=== PATIENT | male | born 1950 | race Caucasian/White ===

== ENCOUNTER → 2023-05-12 06:20 | Outpatient (REF) | payer MEDICARE, OTHER, SELFPAY ==
[2023-05-12 10:00] LABS: % Basophils 0.6 % (0-2); % Eosinophils 1.2 % (0-6); % Immature Granulocytes 0.3 % (0-0.5); % Lymphocytes 67.4 % (20.5-51.1); % Monocytes 5.4 % (1.7-9.3); % Neutrophils 25.1 % (42.2-75.2); Absolute Basophils 0.1 10^3/uL (0-0.2); Absolute Eosinophils 0.3 10^3/uL (0-0.7); Absolute Immature Granulocytes 0.1 10^3/uL (0-0.05); Absolute Lymphocytes 15.5 10^3/uL (1.2-3.4); Absolute Monocytes 1.3 10^3/uL (0.1-0.6); Absolute Neutrophils 5.7 10^3/uL (1.4-6.5); Hematocrit 43.3 % (39.0-52.0); Hemoglobin 14.5 g/dL (13.0-18.0); Mean Corp Hgb Conc. 33.5 g/dL (33.0-37.0); Mean Corpuscular Hgb 28.6 pg (27.0-31.0); Mean Corpuscular Volume 85.4 fL (80.0-94.0); Mean Platelet Volume 8.6 fL (7.4-10.4); Nucleated Red Blood Cells % 0 % (-); Platelet Count 280 10^3/uL (130-400); Red Blood Cell Count 5.07 10^6/uL (4.70-6.10); Red Cell Dist. Width 12.6 % (11.5-14.5); White Blood Cell Count 22.9 10^3/uL (4.8-10.8)
[2023-05-12 10:23] LABS: LDH 168 U/L (120-246)
== END ==
LOC: HWLAB 06:20
PROVIDERS: ATTENDING PHYSICIAN Internal Medicine Hematology & Oncology; FAMILY PHYSICIAN Family Medicine
DX: C91.10 Chronic lymphocytic leukemia of B-cell type not having achieved remission (principal)
CPT/HCPCS: 36415; 83615; 85025

== ENCOUNTER → 2023-05-13 12:09 | Outpatient (REF) | payer MEDICARE, OTHER, SELFPAY | LOC: HWRAD 12:09 | PROVIDERS: ATTENDING PHYSICIAN Specialist; FAMILY PHYSICIAN Family Medicine | DX: R91.8 Other nonspecific abnormal finding of lung field (principal) | CPT/HCPCS: 71250 ==

== ENCOUNTER 2023-06-23 11:19 | Emergency (ER) | payer MEDICARE, OTHER, SELFPAY ==
[2023-06-23] VITALS (20 sets, daily range): BP systolic 115–150; BP diastolic 48–74; BMI 30.7
[2023-06-23] MEDS: DUONEB 3 ML INH ×3 (12:14→16:57)
[2023-06-23] MEDS: DECADRON 10 MG IV (12:28)
[2023-06-23 12:40] LABS: % Basophils 0.3 % (0-2); % Eosinophils 0.2 % (0-6); % Immature Granulocytes 0.3 % (0-0.5); % Lymphocytes 22.7 % (20.5-51.1); % Monocytes 8.7 % (1.7-9.3); % Neutrophils 67.8 % (42.2-75.2); Absolute Lymphocytes 2.6 10^3/uL (1.2-3.4); Absolute Neutrophils 7.8 10^3/uL (1.4-6.5); Hematocrit 41.6 % (39.0-52.0); Mean Corp Hgb Conc. 33.7 g/dL (33.0-37.0); Mean Corpuscular Hgb 28.9 pg (27.0-31.0); Mean Corpuscular Volume 85.8 fL (80.0-94.0); Mean Platelet Volume 8.3 fL (7.4-10.4); Nucleated Red Blood Cells % 0 % (-); Platelet Count 169 10^3/uL (130-400); Red Blood Cell Count 4.85 10^6/uL (4.70-6.10); Red Cell Dist. Width 12.6 % (11.5-14.5); White Blood Cell Count 11.5 10^3/uL (4.8-10.8)
[2023-06-23 12:53] LABS: ALT (SGPT) 22 U/L (0-50); AST (SGOT) 26 U/L (17-59); Albumin 4.1 g/dl (3.5-5.0); Alkaline Phosphatase 79 U/L (38-126); Blood Urea Nitrogen 18 mg/dl (9-20); Calcium 8.9 mg/dl (8.4-10.2); Carbon Dioxide 25 mmol/L (22-30); Chloride 99 mmol/L (98-107); Estimated Creatinine Clearance 69 ml/min; Glucose 120 mg/dl (70-99); Potassium 3.9 mmol/L (3.5-5.1); Sodium 133 mmol/L (135-145); Total Bilirubin 0.6 mg/dl (0.2-1.3); eGFR > 60.00
--- NOTE | 2023-06-23 16:11 | ED.GENMED ---
History of Present Illness
General
Chief Complaint: Breathing Problem
Source: patient and spouse
Time Seen by Provider: 06/23/23 11:43
Travel History
Have you had any contact with someone who has COVID-19?: No
Do you have any symptoms of coronavirus? Fever > 100 degrees, chills, cough, shortness of breath, sore throat, loss of taste or smell, muscle aches, or headache?: Yes
Symptoms:: current
History of Present Illness
History of Present Illness:
72-year-old male who presents with increased shortness of breath. Tested positive for COVID 5 days ago. Patient was a longtime smoker but has quit. Patient also has a history of obstructive sleep apnea. Patient was told by urgent care that he
had an obstructed left lung. Patient denies chest pain. Has had low-grade fevers
Past History
Past History
ED Past Medical History: HTN and Other (CLL)
ED Past Surgical History: Appendectomy and Orthopedic
Social History
Tobacco: Former smoker
Alcohol: Former
Personal:
Living: with family
Family History
Family History: Diabetes and CAD
Phy Exam
Physical Exam
Physical Exam:
CONSTITUTIONAL Patient alert and oriented to person, place and time. Well-appearing. Vital signs reviewed.
HEAD atraumatic, normocephalic.
EYES eyelids normal to inspection, Pupils equally round and reactive to light, Extraocular muscles intact, Conjunctiva normal, Sclera normal.
NECK normal range of motion, Trachea midline, no jugular venous distention.
RESPIRATORY CHEST No respiratory distress noted, Chest expansion equal, wheezing bilaterally, scattered rhonchi.
CARDIOVASCULAR regular rate and rhythm, Heart sounds normal.
BACK normal inspection, no obvious deformities
UPPER EXTREMITY range of motion normal, Motor strength normal, no cyanosis, no edema.
LOWER EXTREMITY range of motion normal, Motor strength normal, no cyanosis, no edema.
NEURO Speech normal, No focal motor deficits, Regla coma scale 15, Memory normal, Cranial Nerves intact to screening exam.
SKIN skin warm, dry, and normal in color.
PSYCHIATRIC patient oriented to person place and time, Normal affect.
Scores
Heart Failure Risk
Heart Failure Risk Score: Not Applicable
Course
Orders/Labs/Results
Orders:
Orders
06/23/23
Electrocardiogram (*1) Routine
Comment: CRYSTAL DONE IN ED
06/23/23 11:49
CR Chest - 2 Views Urgent
Comment:
Reason For Exam: sob, COVID +
06/23/23 12:00
Dexamethasone Sod Phosphate [Decadron] 10 mg IV NOW STA
Ipratropium/Albuterol Sulfate [Duoneb] 3 ml INH R NOW STA
06/23/23 12:23
Complete Blood Count/With Diff Urgent
Comprehensive Metabolic Panel Urgent
06/23/23 15:06
Ipratropium/Albuterol Sulfate [Duoneb] 3 ml INH R NOW STA
06/23/23 16:09
Ipratropium/Albuterol Sulfate [Duoneb] 3 ml INH R NOW STA
Abnormal Lab Results
06/23/23
12:23
WBC 11.5 H 10^3/uL
(4.8-10.8)
Absolute Neuts (auto) 7.8 H 10^3/uL
(1.4-6.5)
Absolute Monos (auto) 1.0 H 10^3/uL
(0.1-0.6)
Sodium 133 L mmol/L
(135-145)
Glucose 120 H mg/dl
(70-99)
Total Protein 6.0 L g/dl
(6.3-8.2)
06/23/23 12:23
06/23/23 12:23
Vital Signs
Initial and Last Documented VS:
Initial Vital Signs
Temp Pulse Resp BP Pulse Ox
99.9 F 85 18 150/58 92
06/23/23 11:23 06/23/23 11:23 06/23/23 11:23 06/23/23 11:23 06/23/23 11:23
Last Documented Vital Signs
Temp Pulse Resp BP Pulse Ox
100.0 F 83 18 126/55 89
06/23/23 15:23 06/23/23 12:30 06/23/23 11:23 06/23/23 15:15 06/23/23 15:30
MDM/Problems Addressed
MDM/Problems Addressed:
Reactive airway disease, CLL, COVID-19
*Pulse Oximetry
Patient hypoxic: yes (mild 92-94% (pt states that this is baseline))
*EKG
Interpreted by ED Provider?: Yes
Interpretation: normal
Rate: normal
Rhythm: sinus
[place]: normal axis
Interval: normal interval
QRS Pattern: normal QRS
Ischemia: no ischemia
*Potato Inspector Interpretation
Rate: normal
Interpretation: normal
Rhythm: sinus and other
*Critical Care Note
Total Time (30-74mins, 75-104mins- exclusive of procedures): Not Applicable
Data Reviewed
Source: patient and family
Prescriptions/Medications Considered But Not Given:
Considered antibiotics but suspect viral in nature related to COVID-19
Patient Management
Escalation/DeEscalation of care consider admission/obs:
Longtime smoker here with wheezing secondary to COVID-19. On reevaluation feels better and appears well. Pulse ox 92 to 95%. Respiratory rate normal. Lengthy discussion with family including daughter who is a nurse. Will cover with steroids and
provide nebulizer machine. Patient will return immediately for any progressive symptoms. Family will closely watch him. Patient feels comfortable with outpatient management
ED Attending Note
-
Portions of this chart may have been created with voice recognition software.� Occasional wrong word or��sound alike� substitutions may have occurred due to the inherent limitations of voice recognition software.
Discharge Plan
Departure
Patient Disposition: Home (Routine Discharge)
Date of Disposition: 06/23/23
Time of Disposition: 16:16
Patient with high blood pressure during this ER visit?: No
Discharge Problem:
COVID-19, Acute bronchitis, RAD (reactive airway disease)
Instructions: Acute Bronchitis, Adult (DC), COVID-19 (DC)
Prescriptions:
New
albuterol sulfate 2.5 mg /3 mL (0.083 %) solution for nebulization
2.5 mg inhalation Q4H PRN (Reason: shortness of breath or wheezing) Qty: 180 0RF
prednisone 10 mg Tablet
See Rx Instructions .ROUTE .COMPLEX Qty: 45 0RF
Rx Instructions:
Take By Mouth:
50 mg daily x3 days, 40 mg daily x3 days,
30 mg daily x3 days, 20 mg daily x3 days,
10 mg daily x3 days
No Action
losartan 50 MG tablet
100 mg PO DAILY
valsartan-hydrochlorothiazide 1 EACH tablet
1 ea PO DAILY
trazodone 100 MG tablet
100 mg PO HSPRN PRN (Reason: sleep)
omeprazole 20 MG capsule,delayed release(DR/EC)
20 mg PO DAILY
lorazepam 1 MG tablet
1 mg PO DAILYPRN PRN (Reason: anxiety)
spironolactone 50 MG tablet
50 mg PO BID
verapamil 240 MG capsule,ext rel. pellets 24 hr
240 mg PO DAILY
Referrals:
Juan Rai DO [Family Provider] -
Activity Restrictions/Additional Instructions:
Please use albuterol every 4 hours for the next 2 days. Please see your doctor in the next 3 to 5 days for follow-up and reevaluation. Return to me for difficulty breathing, persistent fevers, coughing up blood, weakness of any kind or any other
concerns.
Interventions
Interventions:
*Risk Screen - Suicide Last Done: 06/23/23 11:23
*General Assessment Last Done: 06/23/23 11:23
*Neglect/Abuse Screening Last Done: 06/23/23 11:23
ED- Fall Risk Assessment Last Done: 06/23/23 11:23
*ED COVID-19 Vaccine History Last Done: 06/23/23 11:23
ED- Cardiac Assessment Last Done: 06/23/23 11:23
ED- Pulmonary Assessment Last Done: 06/23/23 11:23
Discharge Date and Time
Print Language: SAMI
== END 2023-06-23 17:07 | disposition home or self-care (01) ==
LOC: EMR 11:19
PROVIDERS: EMERGENCY PHYSICIAN Emergency Medicine; FAMILY PHYSICIAN Family Medicine
DX: U07.1 COVID-19 (principal); J20.8 Acute bronchitis due to other specified organisms; J45.909 Unspecified asthma, uncomplicated; Z87.891 Personal history of nicotine dependence; G47.33 Obstructive sleep apnea (adult) (pediatric)
CPT/HCPCS: 99285; 96374; 94640; 71046; 80053; 85025; 93005

== ENCOUNTER → 2023-09-23 06:09 | Outpatient (REF) | payer MEDICARE, OTHER, SELFPAY ==
[2023-09-23 09:53] LABS: Hematocrit 43.5 % (39.0-52.0); Mean Corp Hgb Conc. 34.5 g/dL (33.0-37.0); Mean Corpuscular Hgb 29.5 pg (27.0-31.0); Mean Corpuscular Volume 85.5 fL (80.0-94.0); Mean Platelet Volume 8.6 fL (7.4-10.4); Platelet Count 208 10^3/uL (130-400); Red Blood Cell Count 5.09 10^6/uL (4.70-6.10); Red Cell Dist. Width 12.7 % (11.5-14.5); White Blood Cell Count 21.9 10^3/uL (4.8-10.8)
[2023-09-23 09:58] LABS: ALT (SGPT) 19 U/L (0-50); AST (SGOT) 21 U/L (17-59); Albumin 4.2 g/dl (3.5-5.0); Alkaline Phosphatase 80 U/L (38-126); Blood Urea Nitrogen 25 mg/dl (9-20); Calcium 9.5 mg/dl (8.4-10.2); Carbon Dioxide 26 mmol/L (22-30); Chloride 103 mmol/L (98-107); Glucose 110 mg/dl (70-99); HDL Cholesterol 39 mg/dl; LDL Cholesterol, Calculated 51 mg/dl; Potassium 4.2 mmol/L (3.5-5.1); Sodium 139 mmol/L (135-145); Total Bilirubin 0.6 mg/dl (0.2-1.3); Total Cholesterol 156 mg/dl (50-199); Triglyceride 331 mg/dl (10-149); Very Low Density Lipoprotein 66 mg/dl (0-30); eGFR > 60.00
[2023-09-23 10:11] LABS: % Basophils 0.5 % (0-2); % Eosinophils 1.6 % (0-6); % Immature Granulocytes 0.3 % (0-0.5); % Lymphocytes 67.4 % (20.5-51.1); % Monocytes 5.8 % (1.7-9.3); % Neutrophils 24.4 % (42.2-75.2); Absolute Basophils 0.1 10^3/uL (0-0.2); Absolute Eosinophils 0.3 10^3/uL (0-0.7); Absolute Immature Granulocytes 0.1 10^3/uL (0-0.05); Absolute Lymphocytes 14.8 10^3/uL (1.2-3.4); Absolute Monocytes 1.3 10^3/uL (0.1-0.6); Absolute Neutrophils 5.3 10^3/uL (1.4-6.5); Nucleated Red Blood Cells % 0 % (-)
[2023-09-23 10:28] LABS: TSH 0.91 uIU/ml (0.47-4.68)
== END ==
LOC: HWLAB 06:09
PROVIDERS: ATTENDING PHYSICIAN Family Medicine
DX: E78.1 Pure hyperglyceridemia (principal); R74.8 Abnormal levels of other serum enzymes; N52.1 Erectile dysfunction due to diseases classified elsewhere; N18.2 Chronic kidney disease, stage 2 (mild); E78.00 Pure hypercholesterolemia, unspecified; K76.0 Fatty (change of) liver, not elsewhere classified
CPT/HCPCS: 36415; 80053; 80061; 84443; 85025

== ENCOUNTER → 2023-09-25 08:50 | Outpatient (REF) | payer MEDICARE, OTHER, SELFPAY ==
[2023-09-25 12:58] LABS: PSA, Total - Screen 4.72 ng/ml (0.0-4.0)
== END ==
LOC: HWLAB 08:50
PROVIDERS: ATTENDING PHYSICIAN Family Medicine
DX: N52.1 Erectile dysfunction due to diseases classified elsewhere (principal); R35.1 Nocturia; Z12.5 Encounter for screening for malignant neoplasm of prostate
CPT/HCPCS: 36415; G0103

== ENCOUNTER → 2023-12-29 06:21 | Outpatient (REF) | payer MEDICARE, OTHER, SELFPAY ==
[2023-12-29 09:56] LABS: Hematocrit 44.6 % (39.0-52.0); Hemoglobin 14.8 g/dL (13.0-18.0); Mean Corp Hgb Conc. 33.2 g/dL (33.0-37.0); Mean Corpuscular Hgb 27.9 pg (27.0-31.0); Mean Corpuscular Volume 84.2 fL (80.0-94.0); Mean Platelet Volume 8.6 fL (7.4-10.4); Platelet Count 246 10^3/uL (130-400); Red Cell Dist. Width 12.9 % (11.5-14.5); White Blood Cell Count 23.7 10^3/uL (4.8-10.8)
[2023-12-29 10:30] LABS: LDH 183 U/L (120-246)
[2023-12-29 11:02] LABS: Absolute Neutrophils -Man Diff 4.7 10^3/uL (1.4-6.5); Band Neutrophils 1 % (0-3); Eosinophils 2 % (0-6); Lymphocytes 56 % (20-51); Monocytes 4 % (2-9); Segmented Neutrophils 19 % (42-75)
[2023-12-29 11:03] LABS: Atypical Lymphocytes 18 %; Normal RBC Morphology Yes; Platelets Checked Yes; Total Cells Counted 100
== END ==
LOC: HWLAB 06:21
PROVIDERS: ATTENDING PHYSICIAN Internal Medicine Hematology & Oncology; FAMILY PHYSICIAN Family Medicine
DX: C91.10 Chronic lymphocytic leukemia of B-cell type not having achieved remission (principal)
CPT/HCPCS: 36415; 83615; 85025

== ENCOUNTER 2024-01-29 06:24 | Day surgery (SDC) | payer MEDICARE, OTHER, SELFPAY | END 2024-01-29 09:05 | disposition home or self-care (01) | LOC: GI 06:24 | PROVIDERS: ATTENDING PHYSICIAN Internal Medicine Gastroenterology | DX: K22.70 Barrett's esophagus without dysplasia (principal); R12 Heartburn; K44.9 Diaphragmatic hernia without obstruction or gangrene; K31.89 Other diseases of stomach and duodenum; K22.89 Other specified disease of esophagus | CPT/HCPCS: 43239; 88305; 88341; 88342; 88365 ==

== ENCOUNTER → 2024-04-19 13:43 | Outpatient (REF) | payer MEDICARE, OTHER, SELFPAY ==
[2024-04-19 15:51] LABS: Hematocrit 46.7 % (39.0-52.0); Hemoglobin 15.3 g/dL (13.0-18.0); Mean Corp Hgb Conc. 32.8 g/dL (33.0-37.0); Mean Corpuscular Hgb 28.3 pg (27.0-31.0); Mean Corpuscular Volume 86.5 fL (80.0-94.0); Mean Platelet Volume 8.4 fL (7.4-10.4); Platelet Count 246 10^3/uL (130-400); Red Cell Dist. Width 12.9 % (11.5-14.5); White Blood Cell Count 35.8 10^3/uL (4.8-10.8)
[2024-04-19 16:59] LABS: ALT (SGPT) 23 U/L (0-50); AST (SGOT) 21 U/L (17-59); Albumin 4.7 g/dl (3.5-5.0); Alkaline Phosphatase 86 U/L (38-126); Blood Urea Nitrogen 20 mg/dl (9-20); Calcium 9.5 mg/dl (8.4-10.2); Carbon Dioxide 25 mmol/L (22-30); Chloride 101 mmol/L (98-107); Glucose 93 mg/dl (70-99); LDH 220 U/L (120-246); Potassium 4.3 mmol/L (3.5-5.1); Sodium 139 mmol/L (135-145); Total Bilirubin 0.5 mg/dl (0.2-1.3); Total Protein 6.3 g/dl (6.3-8.2); eGFR > 60.00
[2024-04-19 18:00] LABS: % Basophils 0.8 % (0-2); % Eosinophils 3.5 % (0-6); % Immature Granulocytes 0.7 % (0-0.5); % Lymphocytes 73.1 % (20.5-51.1); % Monocytes 4.3 % (1.7-9.3); % Neutrophils 17.6 % (42.2-75.2); Absolute Basophils 0.3 10^3/uL (0-0.2); Absolute Eosinophils 1.3 10^3/uL (0-0.7); Absolute Immature Granulocytes 0.3 10^3/uL (0-0.05); Absolute Lymphocytes 26.2 10^3/uL (1.2-3.4); Absolute Monocytes 1.5 10^3/uL (0.1-0.6); Absolute Neutrophils 6.3 10^3/uL (1.4-6.5); Nucleated Red Blood Cells % 0 % (-)
== END ==
LOC: HWLAB 13:43
PROVIDERS: ATTENDING PHYSICIAN Internal Medicine Hematology & Oncology; FAMILY PHYSICIAN Family Medicine
DX: C91.10 Chronic lymphocytic leukemia of B-cell type not having achieved remission (principal)
CPT/HCPCS: 36415; 80053; 83615; 85025

== ENCOUNTER → 2024-07-26 06:11 | Outpatient (REF) | payer MEDICARE, OTHER, SELFPAY ==
[2024-07-26 09:49] LABS: ALT (SGPT) 22 U/L (0-50); AST (SGOT) 19 U/L (17-59); Albumin 4.3 g/dl (3.5-5.0); Alkaline Phosphatase 76 U/L (38-126); Blood Urea Nitrogen 21 mg/dl (9-20); Calcium 9.4 mg/dl (8.4-10.2); Carbon Dioxide 27 mmol/L (22-30); Chloride 106 mmol/L (98-107); Glucose 120 mg/dl (70-99); LDH 199 U/L (120-246); Potassium 4.4 mmol/L (3.5-5.1); Sodium 142 mmol/L (135-145); Total Bilirubin 0.4 mg/dl (0.2-1.3); Total Protein 6.1 g/dl (6.3-8.2); eGFR > 60.00
[2024-07-26 09:53] LABS: Hematocrit 45.3 % (39.0-52.0); Hemoglobin 15.4 g/dL (13.0-18.0); Mean Corpuscular Hgb 29.3 pg (27.0-31.0); Mean Corpuscular Volume 86.1 fL (80.0-94.0); Mean Platelet Volume 8.5 fL (7.4-10.4); Platelet Count 215 10^3/uL (130-400); Red Blood Cell Count 5.26 10^6/uL (4.70-6.10); Red Cell Dist. Width 12.7 % (11.5-14.5); White Blood Cell Count 28.6 10^3/uL (4.8-10.8)
[2024-07-26 11:44] LABS: % Basophils 0.5 % (0-2); % Eosinophils 0.8 % (0-6); % Immature Granulocytes 0.3 % (0-0.5); % Lymphocytes 76.1 % (20.5-51.1); % Monocytes 4.8 % (1.7-9.3); % Neutrophils 17.5 % (42.2-75.2); Absolute Basophils 0.1 10^3/uL (0-0.2); Absolute Eosinophils 0.2 10^3/uL (0-0.7); Absolute Immature Granulocytes 0.1 10^3/uL (0-0.05); Absolute Lymphocytes 21.8 10^3/uL (1.2-3.4); Absolute Monocytes 1.4 10^3/uL (0.1-0.6); Nucleated Red Blood Cells % 0 % (-)
== END ==
LOC: HWLAB 06:11
PROVIDERS: ATTENDING PHYSICIAN Internal Medicine Hematology & Oncology; FAMILY PHYSICIAN Family Medicine
DX: C91.10 Chronic lymphocytic leukemia of B-cell type not having achieved remission (principal); C43.59 Malignant melanoma of other part of trunk
CPT/HCPCS: 36415; 80053; 83615; 85025

== ENCOUNTER → 2024-11-10 06:06 | Outpatient (REF) | payer MEDICARE, OTHER, SELFPAY ==
[2024-11-10 09:54] LABS: ALT (SGPT) 23 U/L (0-50); AST (SGOT) 22 U/L (17-59); Albumin 4.4 g/dl (3.5-5.0); Alkaline Phosphatase 81 U/L (38-126); Blood Urea Nitrogen 22 mg/dl (9-20); Calcium 9.2 mg/dl (8.4-10.2); Carbon Dioxide 28 mmol/L (22-30); Chloride 106 mmol/L (98-107); Glucose 118 mg/dl (70-99); HDL Cholesterol 35 mg/dl; LDL Cholesterol, Calculated 59 mg/dl; Potassium 4.3 mmol/L (3.5-5.1); Sodium 139 mmol/L (135-145); Total Protein 6.2 g/dl (6.3-8.2); Very Low Density Lipoprotein 60 mg/dl (0-30); eGFR > 60.00
[2024-11-10 10:21] LABS: PSA, Total - Screen 5.52 ng/ml (0.0-4.0)
[2024-11-10 10:46] LABS: Glycohemoglobin (HgbA1c) 5.8 % (4.0-5.6)
== END ==
LOC: HWLAB 06:06
PROVIDERS: ATTENDING PHYSICIAN Family Medicine
DX: I10 Essential (primary) hypertension (principal); E78.00 Pure hypercholesterolemia, unspecified; K21.9 Gastro-esophageal reflux disease without esophagitis; R73.9 Hyperglycemia, unspecified; C91.10 Chronic lymphocytic leukemia of B-cell type not having achieved remission; C43.9 Malignant melanoma of skin, unspecified; Z12.5 Encounter for screening for malignant neoplasm of prostate
CPT/HCPCS: 36415; 80053; 80061; 83036; G0103

== ENCOUNTER → 2025-01-31 06:34 | Outpatient (REF) | payer MEDICARE, OTHER, SELFPAY ==
[2025-01-31 07:56] LABS: ALT (SGPT) 25 U/L (0-50); AST (SGOT) 19 U/L (17-59); Albumin 4.5 g/dl (3.5-5.0); Alkaline Phosphatase 82 U/L (38-126); Blood Urea Nitrogen 22 mg/dl (9-20); Calcium 10.0 mg/dl (8.4-10.2); Carbon Dioxide 29 mmol/L (22-30); Chloride 103 mmol/L (98-107); Glucose 113 mg/dl (70-99); LDH 208 U/L (120-246); Potassium 4.3 mmol/L (3.5-5.1); Sodium 138 mmol/L (135-145); Total Protein 6.5 g/dl (6.3-8.2); eGFR > 60.00
[2025-01-31 08:32] LABS: Hematocrit 49.0 % (39.0-52.0); Hemoglobin 15.6 g/dL (13.0-18.0); Mean Corp Hgb Conc. 31.8 g/dL (33.0-37.0); Mean Corpuscular Volume 90.7 fL (80.0-94.0); Platelet Count 229 10^3/uL (130-400); Red Cell Dist. Width 13.2 % (11.5-14.5)
[2025-01-31 14:56] LABS: Nucleated Red Blood Cells % 0 % (-)
== END ==
LOC: REG 06:34
PROVIDERS: ATTENDING PHYSICIAN Internal Medicine Hematology & Oncology; FAMILY PHYSICIAN Family Medicine
DX: C91.10 Chronic lymphocytic leukemia of B-cell type not having achieved remission (principal); C43.62 Malignant melanoma of left upper limb, including shoulder
CPT/HCPCS: 36415; 80053; 83615; 85025